=== PATIENT | female | born 1990 | race Caucasian/White ===

== ENCOUNTER 2024-05-28 23:28 | Emergency (ER) | payer OTHER ==
[~2024-05-28] VITALS: Ht 165.1 cm; Wt 60.0 kg
[2024-05-28 23:30] VITALS: TEMP 97.8; O2SAT 100
[2024-05-29 00:23] LABS: HEMATOCRIT. 39.2 % (36.0-48.0); HEMOGLOBIN. 13.5 g/dL (12.0-16.0); LYMPHOCYTES % 36.5 % (20.0-50.0); MEAN CORPUSCULAR HEMOGLOBIN 32.7 pg (28.0-32.0); MEAN CORPUSCULAR HGB CONC 34.5 g/dL (31.0-37.0); MEAN CORPUSCULAR VOLUME 94.9 fL (81.0-99.0); MEAN PLATELET VOLUME 8.6 fl (7.4-10.4); MONOCYTES % 5.6 % (2.0-8.0); NEUTROPHILS % 50.9 % (40.0-76.0); PLATELET 293 x1000/uL (130-400); RED BLOOD CELL COUNT 4.13 mill/uL (4.2-5.4); RED CELL DISTRIBUTION WIDTH 13.6 % (11.6-14.6); WHITE BLOOD COUNT 6.3 x1000/uL (4.5-11.0)
[2024-05-29 00:29] LABS: CHLORIDE 115 mEq/L (98-107); POTASSIUM 3.6 mEq/L (3.5-5.1); SODIUM 145 mEq/L (136-145)
[2024-05-29 00:30] LABS: CALCIUM 8.9 mg/dL (8.7-10.4); CARBON DIOXIDE 19 mEq/L (21-32)
[2024-05-29 00:35] LABS: CREATININE 0.8 mg/dL (0.6-1.0); ETHANOL BLOOD 148 mg/dL (<10); GLUCOSE 84 mg/dL (70-105); UREA NITROGEN BLOOD 8 mg/dL (9-23)
[2024-05-29 00:42] LABS: HCG SCREEN NEGATIVE
[2024-05-29 01:49] VITALS: BP 90/52; PULSE 82; RESP 18
== END 2024-05-29 01:57 | disposition home or self-care (01) ==
LOC: ER 23:28
DX: R56.9 Unspecified convulsions (principal); F10.129 Alcohol abuse with intoxication, unspecified; Y90.6 Blood alcohol level of 120-199 mg/100 ml
CPT/HCPCS: 36415; 80048; 80320; 84703; 85025; 99283; G0480